=== PATIENT | female | born 1950 | race Caucasian/White ===

== ENCOUNTER → 2016-09-29 | Outpatient (CLI) | payer OTHER ==
[~2016-09-29] MED LIST: AMIT25TA9 PO; ASPCH81X PO; CALC-393 PO; CARI350T28 PO; CETI10TA84 PO; CHOL1000 PO; CITA20TA4 PO; CLON0.5T3 PO; FLUT0.15 NAE; LEVO75TA5 PO; MULT-845 PO; TRAM-10 PO; ZOLP5TAB PO
== END | disposition home or self-care (01) ==
LOC: C.LABMFLN 11:33
PROVIDERS: ATTEND Family Medicine
DX: E78.5 Hyperlipidemia, unspecified (principal)

== ENCOUNTER → 2017-06-13 | Outpatient (CLI) | payer OTHER ==
[2017-06-13 17:54] LABS: BLOOD UREA NITROGEN 12 mg/dl (7-18); BUN/CREATININE RATIO 20.4 (10-20); CALCIUM 9.8 mg/dl (8.5-10.1); CARBON DIOXIDE 26 mmol/L (21-32); CHLORIDE 105 mmol/L (98-107); CREATININE 0.56 mg/dl (0.60-1.20); GLUCOSE 94 mg/dl (70-99); SODIUM 137 mmol/L (136-145)
[2017-06-13 18:04] LABS: PHOSPHORUS 3.5 mg/dl (2.5-4.9)
[2017-06-13 18:19] LABS: BASO % 0.9 %; BASO ABS # 0.03 K/uL (0-0.2); COMPLETE YES; HEMATOCRIT 43.4 % (37-47); LYMPH % 49.7 %; LYMPH ABS # 1.75 K/uL (1.2-3.4); MEAN CELL VOLUME 91.2 fL (80-100); MEAN CORPUSCULAR HEMOGLOBIN 30.7 pg (25-34); MEAN CORPUSCULAR HGB CONC 33.6 g/dl (32-36); MEAN PLATELET VOLUME 9.4 fL (7.4-10.4); MONO % 9.1 %; NEUT % 36.3 %; PLATELET COUNT 254 K/uL (130-400); RED BLOOD COUNT 4.76 M/uL (4.2-5.4); WHITE BLOOD COUNT 3.52 K/uL (4.8-10.8)
== END | disposition home or self-care (01) ==
LOC: C.LABMFLN 14:54
PROVIDERS: ATTEND Family Medicine
DX: F32.9 Major depressive disorder, single episode, unspecified (principal); E03.9 Hypothyroidism, unspecified

== ENCOUNTER → 2017-06-14 | Outpatient (CLI) | payer OTHER ==
[2017-06-14 12:46] LABS: URINE APPEARANCE CLEAR (CLEAR); URINE BILIRUBIN NEG (NEG); URINE COLOR YELLOW; URINE NITRITE NEG (NEG); URINE PH 7.5 (4.5-7.5); UROBILINOGEN NEG (NEG)
[2017-06-14 12:47] LABS: MANUAL MICROSCOPIC REQUIRED? NO; REVIEW REQ? YES
== END | disposition home or self-care (01) ==
LOC: C.LABMFLN 10:33
PROVIDERS: ATTEND Family Medicine
DX: R53.83 Other fatigue (principal)

== ENCOUNTER → 2017-07-11 | Outpatient (CLI) | payer OTHER | END | disposition home or self-care (01) | LOC: C.LABMFLN 13:41 | PROVIDERS: ATTEND Urology | DX: R31.29 Other microscopic hematuria (principal) ==

== ENCOUNTER → 2017-08-08 | Outpatient (CLI) | payer OTHER ==
[2017-08-08 17:35] LABS: BASO % 0.6 %; BASO ABS # 0.02 K/uL (0-0.2); EOS % 6.8 %; EOS ABS # 0.24 K/uL (0-0.5); HEMOGLOBIN 15.1 g/dL (12.0-16.0); LYMPH % 32.2 %; LYMPH ABS # 1.14 K/uL (1.2-3.4); MEAN CORPUSCULAR HEMOGLOBIN 31.2 pg (25-34); MEAN CORPUSCULAR HGB CONC 33.6 g/dl (32-36); MEAN PLATELET VOLUME 9.9 fL (7.4-10.4); MONO % 8.8 %; MONO ABS # 0.31 K/uL (0.11-0.59); NEUT % 51.6 %; NEUT ABS # 1.83 K/uL (1.4-6.5); PLATELET COUNT 224 K/uL (130-400); RED CELL DISTRIBUTION WIDTH CV 14.7 % (11.5-14.5); RED CELL DISTRIBUTION WIDTH SD 50.3 fL (36.4-46.3); WHITE BLOOD COUNT 3.54 K/uL (4.8-10.8)
[2017-08-08 17:53] LABS: ALBUMIN 3.4 gm/dl (3.4-5.0); ALT/SGPT 41 U/L (12-78); AST/SGOT 23 U/L (15-37); BLOOD UREA NITROGEN 15 mg/dl (7-18); CALCIUM 9.3 mg/dl (8.5-10.1); CARBON DIOXIDE 29 mmol/L (21-32); CREATININE 0.67 mg/dl (0.60-1.20); GLUCOSE 98 mg/dl (70-99); SODIUM 138 mmol/L (136-145)
[2017-08-08 18:05] LABS: ALKALINE PHOSPHATASE 121 U/L (45-117); TOTAL PROTEIN 7.3 gm/dl (6.4-8.2)
== END | disposition home or self-care (01) ==
LOC: C.LABMFLN 10:50
PROVIDERS: ATTEND Family Medicine
DX: R53.83 Other fatigue (principal)

== ENCOUNTER → 2017-09-17 | Outpatient (CLI) | payer OTHER | END | disposition home or self-care (01) | LOC: C.LABMFLN 10:53 | PROVIDERS: ATTEND Family Medicine | DX: E78.5 Hyperlipidemia, unspecified (principal) ==

== ENCOUNTER → 2017-10-10 | Outpatient (CLI) | payer OTHER | END | disposition home or self-care (01) | LOC: C.LABMFLN 17:54 | PROVIDERS: ATTEND Urology | DX: R31.29 Other microscopic hematuria (principal) ==

== ENCOUNTER 2020-01-30 07:13 | Observation (INO) ==
--- NOTE | 2020-01-22 12:32 | Anesthesiology Consultation ---
Date of Service January 22, 2020 Assessment & Plan (1) Encounter for pre-operative examination: - Neutropenia (chronic): evaluated by heme/onc. Possibly cyclic or autoimmune and in addition possible splenomegaly. Per heme/onc note: 11/27/19: "do not think any further intervention is warranted. She may proceed with her foot surgery and normal monitoring of her CBC and see her as clinically indicated if indicated." - Hx lidocaine reaction: per patient, "heart stopped" during appendectomy and required defibrillator. She states she was told reaction was from lidocaine. No issues with surgery/anesthesia since. Surgeon office made aware. *Per nursing phone assessment on 01/21: Travel screen- Lives in [facility]. No known COVID-19 positive contacts. No current COVID-19 related symptoms. Patient scheduled for preop protocol COVID-19 testing 01/25 (location [facility]). Awaiting results. Chart Review Chart Review: Acceptable Risk for Surgery and Patient NOT seen in Pre Admission Testing History Surgery Operation Date: 01/30/20 08:35 Proposed Procedures p Left Foot Flexor Digitorum Longus Tendon, Flexor Hallux Longus Tendon, - DO brittani Kelly Achilles Lengthening, Posterior Tibial Tendon Transfer, - DO brittani Kelly Debridement Plantar Ulcer, Possible Exostectomy 5th Metatarsal - Brian Bentley DO Height/Weight Height: 5 ft 6 in Weight: 102.058 kg Allergies Allergy/AdvReac Type Severity Reaction Status Date / Time lidocaine Allergy Severe "heart Verified 01/22/20 11:34 stopped" requiring defibrillator during appendectomy Penicillins Allergy Severe HIVES, GUM Verified 01/22/20 11:34 SWELLING Sulfa (Sulfonamide Allergy Severe LIP Verified 01/22/20 11:34 Antibiotics) SWELLING AND HIVES ciprofloxacin [From Cipro] Allergy Intermediate DIFFUSE Verified 01/22/20 11:34 REDNESS/SWELLING codeine Allergy Mild Rash Verified 01/22/20 11:34 morphine Allergy Mild Rash Verified 01/22/20 11:34 baclofen AdvReac Intermediate "MADE ME Verified 01/22/20 11:34 FEEL CRAZY" Cipro TABS Allergy Intermediate DIFFUSE Uncoded 01/22/20 11:34 REDNESS/SWELLING Medications Home Medications Medication Instructions Recorded Confirmed Last Taken acetaminophen 325 mg tablet 650 mg PO Q6H PRN #360 tab 11/26/18 01/22/20 Unknown cetirizine 10 mg tablet 10 mg PO QAM #90 tab 11/26/18 01/22/20 Unknown cholecalciferol (vitamin D3) 25 1,000 units PO QAM #30 tab 11/26/18 01/22/20 Unknown mcg (1,000 unit) tablet multivit with 1 tab PO DAILY 11/26/18 01/22/20 Unknown ocroxnka-xpbc-ER-lutein 8 mg iron-400 mcg-300 mcg tablet melatonin 5 mg capsule 5 - 10 mg PO HS PRN cap 01/27/19 01/22/20 Unknown fluticasone propionate 50 2 sprays INTRANASAL DAILY #48 gm 03/17/19 01/22/20 Unknown mcg/actuation nasal spray,suspension Right wrist splint #1 ea 05/29/19 01/21/20 Unknown calcium carbonate 600 mg calcium 600 mg PO QAM tab 05/29/19 01/22/20 Unknown (1,500 mg) tablet amitriptyline 25 mg tablet 25 mg PO HS #90 tab 07/17/19 01/22/20 Unknown clonazepam 0.5 mg tablet 0.5 mg PO HS #30 tab 10/02/19 01/22/20 Unknown aspirin 81 mg PO BID 10/30/19 01/22/20 Unknown fluoxetine 20 mg PO QAM 10/30/19 01/22/20 Unknown levothyroxine 75 mcg PO QAM 10/30/19 01/22/20 Unknown carisoprodol 350 mg tablet 350 mg PO HS PRN #30 tab 01/01/20 01/22/20 Unknown tramadol 50 mg PO BID PRN 01/22/20 01/22/20 Unknown Past Medical History Medical History (Updated 01/22/20 @ 12:29 by Earnestine Muñoz) Carotid artery occlusion Chronic ischemic right MCA stroke 22 years ago- left sided weakness, no use of left hand Depressive disorder Dyslipidemia, goal LDL below 100 Fibromyalgia Gait abnormality wears brace on left foot/uses walker Hearing loss Hx of migraines Hypothyroidism Neutropenia evaluated by heme/onc, s/p bone marrow biopsy 11/2019 Persistent insomnia Past Family History Family History Brother Choriocarcinoma Cerebral palsy Myocardial infarction Father Heart disease Mother Heart disease Parkinson disease Sister Mesothelioma Past Surgical History Surgical History H/O laparoscopy H/O myomectomy Hemangioma REMOVED FROM LEFT LEG (4X'S) History of appendectomy History of colonoscopy History of endoscopic sinus surgery History of tonsillectomy and adenoidectomy [place] teeth removed Social History Smoking Status: Never smoker Do You Dip or Chew Tobacco: No Hx Alcohol Use: Yes Alcohol type: wine alcohol intake frequency: holidays/special occasions only Hx Substance Use: No substance use type: does not use Testing Laboratory Results 01/21/20 WBC 2.72 (under surveillance by heme/onc) H/H 14.4/44.4 PLATELETS 244 SODIUM 139 POTASSIUM 4.0 CHLORIDE 109 CO2 25 BUN 17 CREATININE 0.66 GLUCOSE 90 PT 10.3 PTT 26.8 INR 1.0 TSH 2.970 Electrocardiogram Date: 07/18/19 NSR at 92bpm. Possible LAE. Chest X-Ray Date: 07/18/19 No pneumothorax or pleural effusion. Suspected atelectic changes.
--- NOTE | 2020-01-28 09:36 | History & Physical Report ---
Date of Service January 28, 2020 Assessment & Plan (1) Contracture of joint: Schedule a Left foot FDL, FHL, Achilles lengthening, Posterior tibial tendon transfer, debridement plantar ulcer, possible exostectomy 5th metatarsal. All potential risks, benefits, complications, alternatives, and rehab have been discussed with the patient and she wishes to proceed. Schedule for 01.30.2020 with plan for ASA 81 mg BID x 4 wks for DVT prophylaxis. (2) Spasticity: (3) History of stroke: History of Present Illness Chief Complaint: left foot deformity and pain Primary Care Provider: Davide Kumar MD This is a patient who suffered a stroke in 1996 and over the past 23 years has had a progressive, worsening contracture of the LLE. She has been treated with bracing to correct the alignment of the foot. However, more recently, the deformity has worsened and she has difficulty with ambulation. She has had a recent fracture of the 5th metatarsal. She is now being set up for surgical management to correct the alignment of the foot. Allergies Allergy/AdvReac Type Severity Reaction Status Date / Time lidocaine Allergy Severe "heart Verified 01/22/20 11:34 stopped" requiring defibrillator during appendectomy Penicillins Allergy Severe HIVES, GUM Verified 01/22/20 11:34 SWELLING Sulfa (Sulfonamide Allergy Severe LIP Verified 01/22/20 11:34 Antibiotics) SWELLING AND HIVES ciprofloxacin [From Cipro] Allergy Intermediate DIFFUSE Verified 01/22/20 11:34 REDNESS/SWELLING codeine Allergy Mild Rash Verified 01/22/20 11:34 morphine Allergy Mild Rash Verified 01/22/20 11:34 baclofen AdvReac Intermediate "MADE ME Verified 01/22/20 11:34 FEEL CRAZY" Cipro TABS Allergy Intermediate DIFFUSE Uncoded 01/22/20 11:34 REDNESS/SWELLING Home Medications Home Medications Medication Instructions Recorded Confirmed Type acetaminophen 325 mg tablet 650 mg PO Q6H PRN #360 tab 11/26/18 01/22/20 History cetirizine 10 mg tablet 10 mg PO QAM #90 tab 11/26/18 01/22/20 History multivit with 1 tab PO DAILY 11/26/18 01/22/20 History abocwpdq-dqau-SN-lutein 8 mg iron-400 mcg-300 mcg tablet melatonin 5 mg capsule 5 - 10 mg PO HS PRN cap 01/27/19 01/22/20 History fluticasone propionate 50 2 sprays INTRANASAL DAILY #48 gm 03/17/19 01/22/20 Rx mcg/actuation nasal spray,suspension Right wrist splint #1 ea 05/29/19 01/21/20 Rx calcium carbonate 600 mg calcium 600 mg PO QAM tab 05/29/19 01/22/20 History (1,500 mg) tablet amitriptyline 25 mg tablet 25 mg PO HS #90 tab 07/17/19 01/22/20 Rx clonazepam 0.5 mg tablet 0.5 mg PO HS #30 tab 10/02/19 01/22/20 Rx aspirin 81 mg PO BID 10/30/19 01/22/20 History fluoxetine 20 mg PO QAM 10/30/19 01/22/20 History levothyroxine 75 mcg PO QAM 10/30/19 01/22/20 History carisoprodol 350 mg tablet 350 mg PO HS PRN #30 tab 01/01/20 01/22/20 Rx tramadol 50 mg PO BID PRN 01/22/20 01/22/20 History cholecalciferol (vitamin D3) 25 2,000 units PO QAM #30 tab 01/27/20 History mcg (1,000 unit) tablet Past Med/Surg History Medical History (Updated 01/28/20 @ 09:33 by Félix Perez PA-C) Carotid artery occlusion Chronic ischemic right MCA stroke 22 years ago- left sided weakness, no use of left hand Depressive disorder Dyslipidemia, goal LDL below 100 Fibromyalgia Gait abnormality wears brace on left foot/uses walker Hearing loss Hx of migraines Hypothyroidism Neutropenia evaluated by heme/onc, s/p bone marrow biopsy 11/2019 Persistent insomnia Surgical History H/O laparoscopy H/O myomectomy Hemangioma REMOVED FROM LEFT LEG (4X'S) History of appendectomy History of colonoscopy History of endoscopic sinus surgery History of tonsillectomy and adenoidectomy [place] teeth removed Family History Brother Choriocarcinoma Cerebral palsy Myocardial infarction Father Heart disease Mother Heart disease Parkinson disease Sister Mesothelioma Social History Smoking Status: Never smoker Second Hand Exposure: Yes ( A CHILD); Do You Dip or Chew Tobacco: No; Tobacco Cessation Education Requested by Patient: No Hx Alcohol Use: Yes Alcohol type: wine Hx Substance Use: No Preferred Language: [place] Islander Construction Operations Manager Required: No Beliefs That Will Affect Care: None Current Living Situation: Alone Feels Safe at Home: Yes Safety Concerns: Feels Safe At This Time Physical Exam Constitutional: well developed and well nourished; no acute distress ENMT: external ear and nose normal, oropharynx normal Neck: trachea midline, no thyromegaly Respiratory: normal respiratory effort, lungs clear to auscultation Cardiovascular: Rate/Rhythm: regular rate and regular rhythm Gastrointestinal (Abdomen): normal bowel sounds, soft, nontender, no hepatosplenomegaly Musculoskeletal: Ankle: + deformity (left ankle with plantarflexion/inversion contracture); no skin erythema, no ecchymosis and no surgical incision Skin: no rashes, warm and dry Psychiatric: A+Ox3, euthymic affect Speech: normal rate/rhythm/volume of speech Lymphatic: no cervical or axillary lymphadenopathy
[~2020-01-30 07:13] MED LIST changes: -AMIT25TA9 PO; -ASPCH81X PO; +BACITRACIN INJ 50,000 UNIT VIAL ONE; -CALC-393 PO; -CARI350T28 PO; -CETI10TA84 PO; -CHOL1000 PO; -CITA20TA4 PO; +CLINDAMYCIN 600 MG/54 ML BAG IV SCH; -CLON0.5T3 PO; +EPINEPHrine INJ 1 MG/ML AMP ONE; -FLUT0.15 NAE; +LACTATED RINGER'S 1,000 ML IV SCH; -LEVO75TA5 PO; -MULT-845 PO; +ROPIVACAINE 0.5% 5 MG/ML 30 ML VIAL ONE; -TRAM-10 PO; -ZOLP5TAB PO
[2020-01-30] MEDS ORDERED: MIDAZOLAM HCL 1 MG/ML 2ML VIAL ONE (07:16)
[2020-01-30] MEDS ORDERED: PROPOFOL IV EMULSION 10 MG/ML 20 ML VIAL IV ONE (07:16)
[2020-01-30] MEDS ORDERED: fentaNYL citrate 100 MCG/2 ML VIAL ONE ×2 (07:16→09:59)
[2020-01-30] MEDS ORDERED: HYDROmorphone INJ 2 MG/ML SYR/VIAL ONE (07:21)
[2020-01-30] MEDS ORDERED: CHLOROPROCAINE HCL 3% 20 ML VIAL ONE ×2 (07:38→07:43)
--- NOTE | 2020-01-30 07:44 | History & Physical Bridge Note ---
Date of Service January 30, 2020 History & Physical Bridge Note I have examined the patient, reviewed the History & Physical and in the interval since the performance of the History & Physical I have noted the following changes of clinical significance: no changes noted
[2020-01-30] MEDS ORDERED: fentaNYL citrate 100 MCG/2 ML VIAL IV PRN (08:02)
[2020-01-30] MEDS ORDERED: LABETALOL HCL IV 5 MG/ML 20ML IV PRN (08:02)
[2020-01-30] MEDS ORDERED: ATROPINE SULFATE 0.1 MG/ML 10ML SYR IV PRN (08:02)
[2020-01-30] MEDS ORDERED: ePHEDrine sulfate 50 MG/ML AMP IV PRN (08:02)
[2020-01-30] MEDS ORDERED: MEPERIDINE HCL 25 MG/ML CARP/VIAL IV PRN (08:02)
[2020-01-30] MEDS ORDERED: PHENYLEPHRINE 100MCG/ML 5ML SYR IV PRN (08:02)
[2020-01-30] MEDS ORDERED: ONDANSETRON INJ 2 MG/ML 2 ML VIAL IV PRN ×2 (08:02→13:36)
[2020-01-30] MEDS ORDERED: ACETAMINOPHEN 1000 MG/100 ML IV IV ONE (08:08)
[2020-01-30] MEDS ORDERED: DEXAMETHASONE SOD INJ 4 MG/ML VIAL ONE (09:49)
[2020-01-30] MEDS ORDERED: ONDANSETRON INJ 2 MG/ML 2 ML VIAL ONE (09:49)
[2020-01-30] MEDS ORDERED: GLYCOPYRROLATE 0.2 MG/ML VIAL ONE (10:14)
[2020-01-30] MEDS ORDERED: PHENYLEPHRINE HCL 10 MG/ML VIAL ONE (11:09)
[2020-01-30] MEDS ORDERED: PHENYLEPHRINE 100MCG/ML 5ML SYR ONE (11:09)
[2020-01-30] MEDS ORDERED: ePHEDrine sulfate 50 MG/ML SYR ONE (11:09)
--- NOTE | 2020-01-30 11:09 | Post Operative Brief Note ---
Immediate Post Op Note v1 Date of Surgery January 30, 2020 Pre & Post Diagnosis Operation Date: 01/30/20 08:25 Pre-Op Diagnosis: Left foot fixed equinus contracture, left ankle equinus contracture, contracture Achilles tendon, contracture flexor hallucis longus, contracture flexor digitorum longus, contracture plantar fascia, plantar calcaneal exostosis, post stroke syndrome left lower extremity, exostosis base of fifth metatarsal, ulceration plantar lateral foot, unspecified Joint contracture Post-Op Diagnosis: Left foot fixed equinus contracture, left ankle equinus contracture, contracture Achilles tendon, contracture flexor hallucis longus, contracture flexor digitorum longus, contracture plantar fascia, plantar calcaneal exostosis, post stroke syndrome left lower extremity, exostosis base of fifth metatarsal, ulceration plantar lateral foot,unspecified Joint contracture I identified the patient and participated in the time-out.: Yes Procedure Operation Date: 01/30/20 08:25 Actual Procedures p Left Foot Flexor Digitorum Longus Tendon lengthening, Flexor Hallux Longus Tendon lengthening, Left Plantar Fasciitis Release, Left Resection plantar calcaneal Bone exostosis (Left) - DO brittani Kelly Achilles tendon lengthening, Posterior Tibial Tendon Transfer to third cuneiform bone,(Left) - DO brittani Kelly Debridement Plantar Ulcer plantar lateral foot, fifth metatarsal Exostectomy, Arthrotomy Ankle Joint with posterior capsulotomy and tissue release(Left) - Brian Bentley DO Surgeon Brian Bentley DO Web Application Dev Specialist Félix Perez PA-C Estimated Blood Loss 2 Findings Consistent with Post-Op Diagnosis Specimens None Anesthesia Type General Complications none Disposition Accompanied Patient To Recovery: No Disposition: Recovery Room Overlapping Procedure I was present for: the critical portions of procedure. I was immediately available: during the entire case.
--- NOTE | 2020-01-30 11:23 | Fluoroscopy Report ---
FL foot LT 2V CLINICAL HISTORY: LEFT FOOTAchilles lengthening procedure. COMPARISON STUDY: FLUOROSCOPY TIME: 34 seconds. NUMBER OF FLUOROSCOPIC IMAGES: 2 FINDINGS: 2 intraoperative fluoroscopic spot images demonstrate a soft tissue anchor projected over t he midfoot at the level of either the medial or lateral cuneiform. There is gas within the soft tissu es consistent with recent surgery. IMPRESSION: Intraoperative fluoroscopic spot image demonstrating a soft tissue anchor within the mid foot. ACT 112: Negative or not required by law. Electronically signed by: Vin Garcia M.D. 01/30/2020 11:21 AM
[2020-01-30] MEDS ORDERED: PROMETHAZINE HCL 12.5 MG in SODIUM CHLORIDE 0.9% 50 ML IV ONE (12:45)
--- NOTE | 2020-01-30 13:15 | Anesthesiology Progress Note ---
Date of Service January 30, 2020 Anesthesia Post Procedure Vital Signs Vital Signs: Temp Pulse Pulse Resp BP Pulse Ox 01/30/20 13:10 36.0 C L 90 16 129/79 96 01/30/20 13:00 87 14 123/88 94 01/30/20 12:50 91 H 12 144/89 H 95 01/30/20 12:40 92 H 12 127/104 H 94 01/30/20 12:30 94 H 16 142/117 H 94 01/30/20 12:20 36 C L 97 H 14 142/117 H 94 01/30/20 07:44 36.8 C 73 20 114/83 94 Transfer of Care Handoff Completed per policy Notes Mental Status: alert / awake / arousable Patient Amnestic to Procedure: Yes Nausea / Vomiting: adequately controlled Pain: adequately controlled Airway Patency, RR, SpO2: stable & adequate BP & HR: stable & adequate Hydration State: stable & adequate Anesthetic Complications: no major complications apparent and Pt Satisfied with anesthetic care Notes: The patient is awake and stable. She was given a dose of Phenergan in PACU for nausea.
[2020-01-30] MEDS ORDERED: METOCLOPRAMIDE HCL INJ 5 MG/ML 2 ML VIAL IV PRN (13:36)
[2020-01-30] MEDS ORDERED: [UNRECOGNIZED DRUG - OTHER] PO PRN ×2 (13:36→14:20)
[2020-01-30] MEDS ORDERED: NO NSAIDS SCH (13:36)
[2020-01-30] MEDS ORDERED: CARISOPRODOL 350 MG TABLET PO PRN (13:36)
[2020-01-30] MEDS ORDERED: SODIUM CHLORIDE 0.9% 1000ML 1,000 ML IV SCH (13:36)
[2020-01-30] MEDS ORDERED: MAGNESIUM HYDROXIDE SUSP 30 ML UDC PO PRN (13:36)
[2020-01-30] MEDS ORDERED: bisacodyL 10 MG SUPP PR PRN (13:36)
[2020-01-30] MEDS ORDERED: HYDROmorphone INJ 0.5 MG/0.5 ML SYR IV PRN (13:36)
[2020-01-30] MEDS ORDERED: NALOXONE HCL 0.4 MG/1 ML VIAL/CARP IV PRN (13:36)
--- NOTE | 2020-01-30 13:56 | History & Physical Report ---
Date of Service January 30, 2020 Assessment & Plan (1) Contracture of joint: Secondary to prior CVA Status post left foot flexor digitorum longus tendon lengthening, flexor hallux longus tendon lengthening, left plantar fasciitis release, left resection plantar calcaneal bone exotosis performed 01/29/[address] Bentley PT/OT, pain management, VTE prophylaxis as per ortho management Chronic medical issues at baseline, continue usual outpatient medications, see details below. (2) History of stroke: Continue ASA, prior intolerance (questionable myositis) to statin with pt declining further retrials. 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 Recommending retesting with routine appointment with PCP approx 8 weeks after discharge (6) Chronic sinusitis: Continue cetirizine 10 mg p.o. every morning Flonase 2 sprays intranasal daily (7) Hypothyroidism: TSH WNL on pre-op labs Continue levothyroxine 75 mcg p.o. every morning (8) Persistent insomnia: Continue clonazepam 0.5 mg p.o. at bedtime, noted prior attempts of weaning have failed. (9) Dyslipidemia, goal LDL below 100: Statin intolerance. Consider PCSK 9 inhibitor if insurance covers this as outpatient. LDL 150 on preop labs (10) Depressive disorder: Continue fluoxetine 20 mg p.o. every morning (11) Fibromyalgia: Consider switching fluoxetine to venlafaxine as outpatient. Continue amitriptyline 25 mg p.o. at bedtime (12) Gait abnormality: PT as above Admission and Anticipated Discharge Date Admission Date: January 30, 2020 History of Present Illness Primary Care Provider: Davide Kumar MD Iva Langford is a 69-year-old female here for elective left foot surgery due to chronic but worsening contractures performed by Dr. Bentley today. Doing well postoperatively but still groggy from anesthetic medications. No medical concerns or questions at this time. History of left hemiparesis due to right MCA stroke with associated chronic pain, ambulatory dysfunction, neutropenia (recent work-up including bone marrow biopsy by hematology suggestive of cyclic versus autoimmune versus splenomegaly, allergic rhinitis, chronic sinusitis, insomnia, dysfunction of left eustachian tube, hypothyroidism. Allergies Allergy/AdvReac Type Severity Reaction Status Date / Time lidocaine Allergy Severe "heart Verified 01/30/20 07:50 stopped" requiring defibrillator during appendectomy Penicillins Allergy Severe HIVES, GUM Verified 01/30/20 07:50 SWELLING Sulfa (Sulfonamide Allergy Severe LIP Verified 01/30/20 07:50 Antibiotics) SWELLING AND HIVES ciprofloxacin [From Cipro] Allergy Intermediate DIFFUSE Verified 01/30/20 07:50 REDNESS/SWELLING codeine Allergy Mild Rash Verified 01/30/20 07:50 morphine Allergy Mild Rash Verified 01/30/20 07:50 baclofen AdvReac Intermediate "MADE ME Verified 01/30/20 07:50 FEEL CRAZY" Cipro TABS Allergy Intermediate DIFFUSE Uncoded 01/30/20 07:50 REDNESS/SWELLING Home Medications Home Medications Medication Instructions Recorded Confirmed Type acetaminophen 325 mg tablet 650 mg PO Q6H PRN #360 tab 11/26/18 01/30/20 History cetirizine 10 mg tablet 10 mg PO QAM #90 tab 11/26/18 01/30/20 History multivit with 1 tab PO DAILY 11/26/18 01/30/20 History tjjzuxew-qlng-LN-lutein 8 mg iron-400 mcg-300 mcg tablet melatonin 5 mg capsule 5 - 10 mg PO HS PRN cap 01/27/19 01/30/20 History fluticasone propionate 50 2 sprays INTRANASAL DAILY #48 gm 03/17/19 01/30/20 Rx mcg/actuation nasal spray,suspension Right wrist splint #1 ea 05/29/19 01/21/20 Rx calcium carbonate 600 mg calcium 600 mg PO QAM tab 05/29/19 01/30/20 History (1,500 mg) tablet amitriptyline 25 mg tablet 25 mg PO HS #90 tab 07/17/19 01/30/20 Rx clonazepam 0.5 mg tablet 0.5 mg PO HS #30 tab 10/02/19 01/30/20 Rx aspirin 81 mg PO BID 10/30/19 01/30/20 History fluoxetine 20 mg PO QAM 10/30/19 01/30/20 History levothyroxine 75 mcg PO QAM 10/30/19 01/30/20 History carisoprodol 350 mg tablet 350 mg PO HS PRN #30 tab 01/01/20 01/30/20 Rx tramadol 50 mg PO BID PRN 01/22/20 01/30/20 History cholecalciferol (vitamin D3) 25 2,000 units PO QAM #30 tab 01/27/20 01/30/20 History mcg (1,000 unit) tablet Past Med/Surg History Medical History Carotid artery occlusion Chronic ischemic right MCA stroke 22 years ago- left sided weakness, no use of left hand Depressive disorder Dyslipidemia, goal LDL below 100 Fibromyalgia Gait abnormality wears brace on left foot/uses walker Hearing loss Hx of migraines Hypothyroidism Neutropenia evaluated by heme/onc, s/p bone marrow biopsy 11/2019 Persistent insomnia Surgical History H/O laparoscopy H/O myomectomy Hemangioma REMOVED FROM LEFT LEG (4X'S) History of appendectomy History of colonoscopy History of endoscopic sinus surgery History of tonsillectomy and adenoidectomy [place] teeth removed Family History Brother Choriocarcinoma Cerebral palsy Myocardial infarction Father Heart disease Mother Heart disease Parkinson disease Sister Mesothelioma Social History Smoking Status: Never smoker Second Hand Exposure: Yes ( A CHILD); Do You Dip or Chew Tobacco: No; Tobacco Cessation Education Requested by Patient: No Hx Alcohol Use: Yes Alcohol type: wine Hx Substance Use: No Preferred Language: Occitan Communication Ability: Effective State Wildlife Officer Required: No Beliefs That Will Affect Care: None Current Living Situation: Alone Feels Safe at Home: Yes Safety Concerns: Feels Safe At This Time Review of Systems Review of Systems: All systems reviewed & are unremarkable except as noted in HPI & below Physical Exam Constitutional: no acute distress Eyes: + anicteric sclerae; normal pupil size ENMT: external ear and nose normal, oropharynx normal Neck: trachea midline, no thyromegaly Respiratory: normal respiratory effort, lungs clear to auscultation (anteriorly) Cardiovascular: RRR, no murmur, no edema Gastrointestinal (Abdomen): normal bowel sounds, soft, nontender, no hepatosplenomegaly Musculoskeletal: Chronic contractures of left upper extremity, Surgical dressing in place on lower extremity not removed Neurologic: awake; not confused Psychiatric: A+Ox3, euthymic affect Results & Data Results & Data ([facility]) Vital Signs (Past 12 Hours) Vital Signs Temp Pulse Pulse Resp BP Pulse Ox 01/30/20 13:10 36.0 C L 94 H 14 129/85 95 01/30/20 13:00 87 14 123/88 94 01/30/20 12:50 91 H 12 144/89 H 95 01/30/20 12:40 92 H 12 127/104 H 94 01/30/20 12:30 94 H 16 142/117 H 94 01/30/20 12:20 36 C L 97 H 14 142/117 H 94 01/30/20 07:44 36.8 C 73 20 114/83 94 Code Status & VTE Plan VTE Prophylaxis Plan VTE Prophylaxis will be ordered: Yes PG Care Time/CCT Total # of Minutes Spent Total Time Spent with Patient: Total time spent is greater than 50% in coordination of care (as documented) at patient's floor/unit and/or counseling patient: Coding Diagnoses Contracture of joint M24.50 History of stroke Z86.73 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
--- NOTE | 2020-01-30 14:27 | Operative Report (OR) ---
DATE OF OPERATION: 01/30/2020 PREOPERATIVE DIAGNOSES: 1. Left foot fixed equinus contracture. 2. Left ankle fixed equinus contracture. 3. Contracture of the Achilles tendon. 4. Contracture of the flexor hallucis longus tendon. 5. Contracture of the flexor digitorum longus tendon. 6. Contracture of the plantar fascia. 7. Post stroke syndrome, left lower extremity. 8. Exostosis at the base of the fifth metatarsal. 9. Ulceration of the plantar lateral foot. 10. Unspecified joint contracture. POSTOPERATIVE DIAGNOSES: 1. Left foot fixed equinus contracture. 2. Left ankle fixed equinus contracture. 3. Contracture of the Achilles tendon. 4. Contracture of the flexor hallucis longus tendon. 5. Contracture of the flexor digitorum longus tendon. 6. Contracture of the plantar fascia. 7. Post stroke syndrome, left lower extremity. 8. Exostosis at the base of the fifth metatarsal. 9. Ulceration of the plantar lateral foot. 10. Unspecified joint contracture. 11. Plantar calcaneal exostosis. PROCEDURES: 1. Left foot posterior tibial tendon transfer to the third cuneiform bone with Bio-Tenodesis screw and Endobutton. 2. Left foot flexor digitorum longus tendon lengthening. 3. Flexor hallucis longus tendon lengthening. 4. Left plantar fascial release. 5. Left Achilles tendon lengthening. 6. Resection plantar calcaneal bone exostosis. 7. Fifth metatarsal exostectomy. 8. Arthrotomy ankle joint with posterior capsulotomy and tissue release. 9. Debridement of plantar lateral ulcer of the foot. SURGEON: Brian Bentley DO. CONCESSIONS MANAGER: Félix Perez PA-C, who was present for patient positioning, sterile prep and drape, management of retractors and instruments. He was present through the critical portions of the case including wound closure, application of sterile dressing and transport of the patient to recovery. ANESTHESIA: General. SPECIMENS: None. DRAINS: None. COMPLICATIONS: None. BLOOD LOSS: 2 mL. PERTINENT HISTORY: This is a 69-year-old female who has had a severe hemiparetic stroke involving her left lower extremity. She had multiple contractures of the left lower extremity. She has been unable to ambulate due to the fixed equinus position of her foot and ankle. She attempted and failed all manner of conservative measures for the last several years, which have failed including use of MAFO brace, modification of activities, use of a wheelchair, observation, physical therapy and physician directed home exercises. The patient has been unable to ambulate for significant period of time due to fixed position of the foot and severe ulceration and exostosis at the base of the fifth metatarsal. Radiographs, MRI and other advanced imaging denotes findings as above and the patient is scheduled for surgery as indicated. All potential risks, benefits, complications, alternatives, rehab, potential for incomplete relief of symptoms, need for further surgery, DVT, PE, , persistent pain, swelling, scarring, weakness, neurovascular injury, wound complications, hardware failure, nonunion, malunion and bone fracture were discussed with the patient. The patient decided to proceed with the procedure as indicated. DESCRIPTION OF PROCEDURE: The patient was taken to the operative suite, placed supine on the operating table. After review of the consent and identification of proper operative site, the patient was anesthetized, LMA was placed. The patient was unable to have a peripheral nerve block due to hypersensitivity to fast sodium channel blockers. After anesthesia was induced, the patient had a tourniquet applied to the left lower extremity and the left lower extremity was then sterilely prepped and draped in usual fashion, elevated and exsanguinated with an Esmarch bandage, tourniquet inflated to 350 mmHg. Next, a 15 blade scalpel was used to make an incision on the medial plantar border of the left heel. The incision was deepened through subcutaneous tissue. Meticulous hemostasis was achieved with electrocautery. Aparna rakes were applied. The plantar fascia was identified. Plantar fascial release was performed with a 15-blade scalpel to release the fixed plantar contracture of the foot. Next, there was noted to be a calcaneal exostosis in the plantar foot. This was then resected using a rongeur and a rasp. This was irrigated and closed using buried interrupted 2-0 Vicryl and nylon sutures. Next, a 15-blade scalpel was used to make an incision along the medial border of the Achilles tendon. The incision was deepened through subcutaneous tissue. Meticulous hemostasis was achieved with electrocautery. Full thickness skin flaps developed. Electrocautery was used to achieve hemostasis and the peritenon was then incised in line with skin incision with 15-blade scalpel that is retracted with Aparna rakes. The tendon was identified and then a Z-lengthening was then performed with 11 blade scalpel. This was performed in the sagittal plane to enhance surface area of tendon. Palpable release was performed. The foot was held in approximately 5 degrees of dorsiflexion after the Achilles tendon was released and the tendon was then reapproximated using interrupted #2 FiberWire sutures and then a Krackow locking loop stitch was applied to further stabilize the repair. Next, a 15-blade scalpel was used to make an incision centered over the flexor digitorum longus tendon along the medial malleolus. The incision was deepened through subcutaneous tissue with a 15-blade scalpel. Meticulous hemostasis was achieved with electrocautery. Aparna rakes were applied. The laciniate ligament was then incised in line with skin incision and then the flexor retinaculum was then incised with 15-blade scalpel revealing the posterior tibial tendon, which was then traced distally to its insertion and the insertion was then released with a 15-blade scalpel. The tendon was then debrided down to 6 mm diameter and then whipstitched with #2 FiberLoop. This was passed through a 6 mm graft sizer and the tendon was then placed in moist lap. Next, attention was then directed toward the flexor digitorum longus tendon, which was then visualized and the sheath was then opened with a Metzenbaum scissor, exposing the tendon. A Z-lengthening was then performed of the flexor digitorum longus tendon releasing the contracture. The tendon was then lengthened. The foot was held in neutral dorsiflexion and the tendon was then reapproximated with interrupted #2 FiberWire sutures. Next, the neurovascular bundle was then carefully retracted posteriorly with [facility] retractors. The sheath for the flexor hallucis longus was then identified. This was then opened with a 15-blade scalpel and then released proximal and distal with Metzenbaum scissors. The tendon was then withdrawn from the tendon sheath and then lengthened with an 11-blade scalpel in a Z-lengthening fashion. Next, the tendon was then lengthened. The foot was held in neutral dorsiflexion with the great toe held in neutral and the tendon was then reapproximated with interrupted #2 FiberWire horizontal mattress sutures with the tendon in its lengthened state. Next, more supple motion was noted with neutral dorsiflexion, release of the contracture is noted. However, there is noted to be a posterior ankle joint contracture. Arthrotomy was made with a 15-blade scalpel in the posterior ankle joint capsule and then capsulotomy was then performed with Metzenbaum scissors from the medial malleolus to the lateral malleolus with Metzenbaum scissors releasing the joint capsule contracture. Next, achieving neutral dorsiflexion was quite easy with lower tissue tension, improved foot position and then the posterior tibial tendon was then shuttled in the subcutaneous tunnel using a Cyndie clamp to the more medial aspect of the proximal lower extremity through a small stab incision with 15-blade scalpel. Tendon was then shuttled proximally and then using another shuttled placed posterior to the more proximal midshaft tibia, the posterior tibial tendon was then shuttled to lateral stab incision with 15-blade scalpel. The tendon was then withdrawn through the tissue. The interosseous membrane was dilated and released with a Metzenbaum scissor. Next, the tendon was then shuttled distally along the lateral aspect of the lower extremity using a Cyndie clamp, small stab incision with 15-blade scalpel and a 2-0 Vicryl suture. Next, the 15-blade scalpel was then used to make an incision over the dorsal third cuneiform. This incision was deepened through subcutaneous tissue. Meticulous hemostasis was achieved with electrocautery. Full thickness skin flaps developed. The dissection was performed through the retinaculum with Metzenbaum scissors down to the extensor digitorum brevis, which was then retracted and protected exposing the third cuneiform. Under live fluoroscopic assistance, guidepin was placed in the third cuneiform in the center-center position and this was then pierced through the plantar aspect of the third cuneiform and then using gentle palpation, placed through a small stab incision in the plantar aspect of the foot. Next, a 6 mm reamer was then passed over the guide pin to a depth of 15 mm. The posterior tibial tendon was then marked at 5 mm increments with a marking pen and then shuttled into the third cuneiform under live fluoroscopic assistance and then buried to a depth of 15 mm with the foot held in neutral dorsiflexion. A 5.5 mm Bio-Tenodesis screw was then placed into the socket in the third cuneiform and an Endobutton was applied to the plantar aspect of the third cuneiform over the sutures. A suture management technician was then used to shuttle half hitch knots under the Endobutton to secure it against the plantar aspect of the third cuneiform. Excess suture was cut with a 15-blade scalpel. Final radiographs were obtained noting neutral dorsiflexion and position of the foot and it is markedly improved in resting position. Then all incisions were then copiously irrigated with sterile normal saline. The flexor retinaculum was then closed using 2-0 Vicryl, the dermis was closed using buried interrupted 3-0 Vicryl, skin was closed using nylon medially. All small stab incisions were closed using 4-0 nylon and the dorsal foot incision was irrigated and closed with 3-0 Vicryl and 4-0 nylon. The Achilles tendon sheath was closed using 3-0 Vicryl. The dermis was closed using buried interrupted 3-0 Vicryl, skin was closed using 4-0 nylon. Next, a 15-blade scalpel was then used to make an incision on the plantar base of the fifth metatarsal. The incision was deepened through subcutaneous tissue. Meticulous hemostasis was achieved with electrocautery. Aparna rakes were applied. The bursa present was then incised revealing the hypertrophic exostosis at the base of the fifth metatarsal, which was then resected using a rongeur and then smoothed with a rasp. This was irrigated with copious amounts of sterile normal saline. The tissue was closed using Vicryl deep and 4-0 nylon superficially. The plantar lateral ulcer was then debrided using a 15-blade scalpel, this measured approximately 2 cm in diameter. Next, after final radiographs have been obtained, a sterile compressive dressing and bulky Jez Reddy plaster splint was applied overwrapped with an Adarsh wrap with the foot held in neutral dorsiflexion. The tourniquet was released. The patient was awakened. Normal hyperemic response was noted at the toes. The patient was then taken to recovery in stable condition. I attest to the content of the Intraoperative Record and any orders documented therein. Any exception s are noted below.
[2020-01-30] MEDS: ACETAMINOPHEN 500 MG TAB PO SCH ×2 (15:24→23:22)
[2020-01-30] MEDS: OXYCODONE HCL IR 5 MG TAB (IMMEDIATE RELEASE) PO PRN (17:12)
[2020-01-30] MEDS: CLINDAMYCIN 600 MG in DEXTROSE 5% 50 ML IV SCH (17:13)
[2020-01-30] MEDS: clonazePAM 0.5 MG TAB PO SCH (20:36)
[2020-01-30] MEDS: ASPIRIN 81 MG ECTAB PO SCH (20:37)
[2020-01-30] MEDS: DOCUSATE SODIUM 100 MG CAP PO SCH (20:37)
[2020-01-30] MEDS: AMITRIPTYLINE HCL 25 MG TAB PO SCH (20:38)
[2020-01-30] MEDS: SENNA 8.6 MG TAB PO SCH (20:38)
[2020-01-30] MEDS: CARISOPRODOL 350 MG TABLET PO SCH (20:42)
[2020-01-31] MEDS: OXYCODONE HCL IR 5 MG TAB (IMMEDIATE RELEASE) PO PRN ×5 (00:40→21:58)
[2020-01-31] MEDS: CLINDAMYCIN 600 MG in DEXTROSE 5% 50 ML IV SCH (00:41)
[2020-01-31] MEDS: LEVOTHYROXINE SODIUM 75 MCG TABLET PO SCH (05:25)
[2020-01-31 05:46] LABS: Hematocrit (blood only) 42.1 % (37-47); Hemoglobin 13.9 g/dL (12.0-16.0); Mean Corpuscular Hemoglobin 30.3 pg (25-34); Mean Corpuscular Volume 91.7 fL (80-100); Mean Platelet Volume 9.4 fL (7.4-10.4); Platelet Count 217 K/uL (130-400); RDW Coefficient of Variation 14.6 % (11.5-14.5); RDW Standard Deviation 49.3 fL (36.4-46.3); Red Blood Count 4.59 M/uL (4.2-5.4); White Blood Count 6.38 K/uL (4.8-10.8)
[2020-01-31 06:07] LABS: BUN Creatinine Ratio 14.1 (10-20); Calcium 8.4 mg/dl (8.5-10.1); Creatinine Clr Calc Pharmacy 89.6 ml/min; Est GFR (Non-African American) 85.4; Potassium 4.2 mmol/L (3.5-5.1)
[2020-01-31] MEDS: ACETAMINOPHEN 500 MG TAB PO SCH ×3 (07:46→21:58)
[2020-01-31] MEDS: CHOLECALCIFEROL 1,000 UNITS 25 MCG TAB PO SCH (08:46)
[2020-01-31] MEDS: MULTIVITAMIN TAB PO SCH (08:46)
[2020-01-31] MEDS: CALCIUM CARBONATE 1250MG TAB PO SCH (08:46)
[2020-01-31] MEDS: ASPIRIN 81 MG ECTAB PO SCH ×2 (08:46→20:19)
[2020-01-31] MEDS: FLUTICASONE PROPIONATE NA SPR 16 GM BTL SCH (08:46)
[2020-01-31] MEDS: FLUOXETINE HCL 20 MG CAP PO SCH (08:46)
[2020-01-31] MEDS: DOCUSATE SODIUM 100 MG CAP PO SCH ×2 (08:46→20:19)
[2020-01-31] MEDS: CETIRIZINE HCL 10 MG TABLET PO SCH (08:46)
[2020-01-31] MEDS ORDERED: NON-FORMULARY MEDICATION (Multivit-Min-Iron-Fa-Lutein [Centrum Silver Women] 1 TAB) PO SCH (09:00)
[2020-01-31] MEDS ORDERED: [UNRECOGNIZED DRUG - SUPPLY] TOP SCH (09:00)
--- NOTE | 2020-01-31 09:28 | Hospitalist Consultation ---
Date of Consultation January 30, 2020 Assessment & Plan (1) Contracture of joint: Secondary to prior CVA Status post left foot flexor digitorum longus tendon lengthening, flexor hallux longus tendon lengthening, left plantar fasciitis release, left resection plantar calcaneal bone exotosis performed 01/29/[address] Bentley PT/OT, pain management, VTE prophylaxis as per ortho management Chronic medical issues at baseline, continue usual outpatient medications, see details below. (2) History of stroke: Continue ASA, prior intolerance (questionable myositis) to statin with pt declining further retrials. 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 (5) Hematuria, microscopic: 5-10 RBCs, normal in October. Patient reports prior cystoscopy normal. (6) Chronic sinusitis: Continue cetirizine 10 mg p.o. every morning Flonase 2 sprays intranasal daily (7) Hypothyroidism: TSH WNL on pre-op labs Continue levothyroxine 75 mcg p.o. every morning (8) Persistent insomnia: Continue clonazepam 0.5 mg p.o. at bedtime, noted prior attempts of weaning have failed. (9) Dyslipidemia, goal LDL below 100: Statin intolerance. Consider PCSK 9 inhibitor if insurance covers this as outpatient. LDL 150 on preop labs (10) Depressive disorder: Continue fluoxetine 20 mg p.o. every morning (11) Fibromyalgia: Consider switching fluoxetine to venlafaxine as outpatient. Continue amitriptyline 25 mg p.o. at bedtime (12) Gait abnormality: PT as above History of Present Illness Reason for Consultation: Medical Management Attending Physician: Brian Bentley DO History of Present Illness Iva Langford is a 69-year-old female here for elective left foot surgery due to chronic but worsening contractures performed by Dr. Bentley today. Doing well postoperatively but still groggy from anesthetic medications. No medical concerns or questions at this time. History of left hemiparesis due to right MCA stroke with associated chronic pain, ambulatory dysfunction, neutropenia (recent work-up including bone marrow biopsy by hematology suggestive of cyclic versus autoimmune versus splenomegaly, allergic rhinitis, chronic sinusitis, insomnia, dysfunction of left eustachian tube, hypothyroidism. Allergies Allergy/AdvReac Type Severity Reaction Status Date / Time lidocaine Allergy Severe "heart Verified 01/30/20 07:50 stopped" requiring defibrillator during appendectomy Penicillins Allergy Severe HIVES, GUM Verified 01/30/20 07:50 SWELLING Sulfa (Sulfonamide Allergy Severe LIP Verified 01/30/20 07:50 Antibiotics) SWELLING AND HIVES ciprofloxacin [From Cipro] Allergy Intermediate DIFFUSE Verified 01/30/20 07:50 REDNESS/SWELLING codeine Allergy Mild Rash Verified 01/30/20 07:50 morphine Allergy Mild Rash Verified 01/30/20 07:50 baclofen AdvReac Intermediate "MADE ME Verified 01/30/20 07:50 FEEL CRAZY" Cipro TABS Allergy Intermediate DIFFUSE Uncoded 01/30/20 07:50 REDNESS/SWELLING Home Medications Home Medications Medication Instructions Recorded Confirmed Type acetaminophen 325 mg tablet 650 mg PO Q6H PRN #360 tab 11/26/18 01/30/20 History cetirizine 10 mg tablet 10 mg PO QAM #90 tab 11/26/18 01/30/20 History multivit with 1 tab PO DAILY 11/26/18 01/30/20 History fjcxcnut-gsuz-HX-lutein 8 mg iron-400 mcg-300 mcg tablet melatonin 5 mg capsule 5 - 10 mg PO HS PRN cap 01/27/19 01/30/20 History fluticasone propionate 50 2 sprays INTRANASAL DAILY #48 gm 03/17/19 01/30/20 Rx mcg/actuation nasal spray,suspension Right wrist splint #1 ea 05/29/19 01/21/20 Rx calcium carbonate 600 mg calcium 600 mg PO QAM tab 05/29/19 01/30/20 History (1,500 mg) tablet amitriptyline 25 mg tablet 25 mg PO HS #90 tab 07/17/19 01/30/20 Rx clonazepam 0.5 mg tablet 0.5 mg PO HS #30 tab 10/02/19 01/30/20 Rx aspirin 81 mg PO BID 10/30/19 01/30/20 History fluoxetine 20 mg PO QAM 10/30/19 01/30/20 History levothyroxine 75 mcg PO QAM 10/30/19 01/30/20 History carisoprodol 350 mg tablet 350 mg PO HS PRN #30 tab 01/01/20 01/30/20 Rx tramadol 50 mg PO BID PRN 01/22/20 01/30/20 History cholecalciferol (vitamin D3) 25 2,000 units PO QAM #30 tab 01/27/20 01/30/20 History mcg (1,000 unit) tablet Patient History Medical History Carotid artery occlusion Chronic ischemic right MCA stroke 22 years ago- left sided weakness, no use of left hand Depressive disorder Dyslipidemia, goal LDL below 100 Fibromyalgia Gait abnormality wears brace on left foot/uses walker Hearing loss Hx of migraines Hypothyroidism Neutropenia evaluated by heme/onc, s/p bone marrow biopsy 11/2019 Persistent insomnia Surgical History H/O laparoscopy H/O myomectomy Hemangioma REMOVED FROM LEFT LEG (4X'S) History of appendectomy History of colonoscopy History of endoscopic sinus surgery History of tonsillectomy and adenoidectomy [place] teeth removed Family History Brother Choriocarcinoma Cerebral palsy Myocardial infarction Father Heart disease Mother Heart disease Parkinson disease Sister Mesothelioma Social History Smoking Status: Never smoker Second Hand Exposure: Yes ( A CHILD); Do You Dip or Chew Tobacco: No; Tobacco Cessation Education Requested by Patient: No Hx Alcohol Use: Yes Alcohol type: wine Hx Substance Use: No Preferred Language: Thai Communication Ability: Effective Pmp Certified Project Manager Required: No Beliefs That Will Affect Care: None Current Living Situation: Alone Feels Safe at Home: Yes Safety Concerns: Feels Safe At This Time Review of Systems Review of Systems: All systems reviewed & are unremarkable except as noted in HPI & below Physical Exam Constitutional: no acute distress Eyes: + anicteric sclerae; normal pupil size ENMT: external ear and nose normal, oropharynx normal Neck: trachea midline, no thyromegaly Respiratory: normal respiratory effort, lungs clear to auscultation (anteriorly) Cardiovascular: RRR, no murmur, no edema Gastrointestinal (Abdomen): normal bowel sounds, soft, nontender, no hepatosplenomegaly Neurologic: awake; not confused Psychiatric: A+Ox3, euthymic affect Results & Data Results & Data ([facility]) Vital Signs (Past 12 Hours) Vital Signs Temp Pulse Resp BP Pulse Ox 01/31/20 07:57 36.5 C 85 16 101/66 91 01/31/20 04:30 36.6 C 78 16 111/72 94 01/30/20 23:20 36.4 C L 89 18 128/79 93 PG Care Time/CCT Total # of Minutes Spent Total Time Spent with Patient: Total time spent is greater than 50% in coordination of care (as documented) at patient's floor/unit and/or counseling patient: Coding Level of Care Code 14596 Inpt Consult Level 3 Diagnoses Contracture of joint M24.50 History of stroke Z86.73 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
--- NOTE | 2020-01-31 09:42 | Orthopedic Progress Note ---
Date of Service January 31, 2020 Assessment & Plan (1) Contracture of joint: POD #1 S/P left foot tendon transfer and lengthening DVT prophylaxis: KATHY/SCD/ASA 81 BID NWB left LE Pt would like to go to [facility] for rehab Admission and Anticipated Discharge Date Admission Date: January 30, 2020 Subjective POD #1 Resting in bed. No complaints today. Some mild pain. Denies CP, SOB, N/V, dizziness Physical Exam Physical Exam: Splint in place left LE. NVI. toes mobile Results & Data ([facility]) Vital Signs (Past 12 Hours) Vital Signs Temp Pulse Resp BP Pulse Ox 01/31/20 07:57 36.5 C 85 16 101/66 91 01/31/20 04:30 36.6 C 78 16 111/72 94 01/30/20 23:20 36.4 C L 89 18 128/79 93
--- NOTE | 2020-01-31 10:36 | Hospitalist Progress Note ---
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 We have been consulted for medical management. 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 Bentley PT/OT, pain management, VTE prophylaxis as per ortho management Chronic medical issues at baseline, continue usual outpatient medications, see details below. (2) History of stroke: Continue ASA, prior intolerance (questionable myositis) to statin with pt declining further retrials. 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 (5) Hematuria, microscopic: 5-10 RBCs, normal in October. Patient reports prior cystoscopy normal. (6) Chronic sinusitis: Continue cetirizine 10 mg p.o. every morning Flonase 2 sprays intranasal daily (7) Hypothyroidism: TSH WNL on pre-op labs Continue levothyroxine 75 mcg p.o. every morning (8) Persistent insomnia: Continue clonazepam 0.5 mg p.o. at bedtime, noted prior attempts of weaning have failed. (9) Dyslipidemia, goal LDL below 100: Statin intolerance. Consider PCSK 9 inhibitor if insurance covers this as outpatient. LDL 150 on preop labs (10) Depressive disorder: Continue fluoxetine 20 mg p.o. every morning (11) Fibromyalgia: Consider switching fluoxetine to venlafaxine as outpatient. Continue amitriptyline 25 mg p.o. at bedtime (12) Gait abnormality: PT as above Iva is medically stable and hospital service will sign off. Please let us know if you would like us to see Iva again, and we would be more than happy to see her. 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 feeling ok overall. mostly notes taht she hopes surgery improved her pain enough to get off the soma. vitals noted nad heent nc at mmm breathing unlabored no accessory muscles good effort skin no rashes no pallor cerebrovascular disease/prior stroke - stable contractures - post op; discussed that getting off soma sometimes requires a weaning (so that she wouldn't be discouraged if she's not able to just stop it abruptly) otherwise as above medically appearing stable. will sign off. available if further assistance is needed. thanks Subjective Iva is awake and eating breakfast this morning without difficulty. She notes she is having some left foot pain s/p surgery. She was hoping for complete resolution of pain and expresses mild frustration this morning. She denies chest pain, shortness of breath, abdominal pain, fever, chills. No acute events reported overnight. Physical Exam Constitutional: WD/WN, vitals as above cooperative and comfortable; no acute distress and not ill appearing Eyes: PERRL, conjunctivae normal, anicteric sclerae ENMT: external ear and nose normal, oropharynx normal Neck: normal visual inspection and trachea midline Respiratory: normal respiratory effort, lungs clear to auscultation Cardiovascular: Rate/Rhythm: regular rate and regular rhythm Gastrointestinal (Abdomen): Percussion/Palpation: abdomen soft; abdomen nontender, no guarding and abdomen not rigid Musculoskeletal: Head/Neck/Chest: normocephalic and head atraumatic Left foot with heavy wrap; left arm prosthetic. Skin: no rashes, warm and dry Neurologic: Left sided hemiplegia - chronic Psychiatric: A+Ox3, euthymic affect Results & Data Results & Data ([facility]) Vital Signs (Past 12 Hours) Vital Signs Temp Pulse Resp BP Pulse Ox 01/31/20 07:57 36.5 C 85 16 101/66 91 01/31/20 04:30 36.6 C 78 16 111/72 94 01/30/20 23:20 36.4 C L 89 18 128/79 93 Laboratory Results Laboratory Results - last 24 hr 01/31/20 01/31/2001/30/20 05:33 05:33 05:33 WBC 6.38 RBC 4.59 Hgb 13.9 Hct 42.1 MCV 91.7 MCH 30.3 MCHC 33.0 RDW Std Deviation 49.3 H RDW Coeff of Lalo 14.6 H Plt Count 217 MPV 9.4 Sodium 139 Potassium 4.2 Chloride 107 Carbon Dioxide 26 Anion Gap 6.0 BUN 10 Creatinine 0.72 Est Cr Clr Drug Dosing 89.6 Est GFR ( Amer) 99.0 Est GFR (Non-Af Amer) 85.4 BUN/Creatinine Ratio 14.1 Glucose 114 H Calcium 8.4 L Hepatitis C Ab Screen Pos A Resident Activity Tracking Resident Involvement: Resident Care Provided Care Provided: Adult Hospital Medicine
--- NOTE | 2020-01-31 15:49 | Billing Data ---
Date of Service January 31, 2020 Coding Level of Care Code 77980 Subseq Hosp Care Lvl 2
[2020-01-31] MEDS ORDERED: COUGH DROP (SUGAR FREE) LOZ 24 LOZ/1 BOX BUCCAL ONE (16:08)
[2020-01-31] MEDS: AMITRIPTYLINE HCL 25 MG TAB PO SCH (20:19)
[2020-01-31] MEDS: CARISOPRODOL 350 MG TABLET PO SCH (20:19)
[2020-01-31] MEDS: SENNA 8.6 MG TAB PO SCH (20:20)
[2020-01-31] MEDS: clonazePAM 0.5 MG TAB PO SCH (20:25)
[2020-02-01] MEDS: LEVOTHYROXINE SODIUM 75 MCG TABLET PO SCH (04:36)
[2020-02-01] MEDS: OXYCODONE HCL IR 5 MG TAB (IMMEDIATE RELEASE) PO PRN ×3 (04:36→14:55)
[2020-02-01] MEDS: ACETAMINOPHEN 500 MG TAB PO SCH ×3 (07:15→23:26)
[2020-02-01] MEDS: FLUTICASONE PROPIONATE NA SPR 16 GM BTL SCH ×2 (08:45→20:52)
[2020-02-01] MEDS: FLUOXETINE HCL 20 MG CAP PO SCH (08:46)
[2020-02-01] MEDS: CETIRIZINE HCL 10 MG TABLET PO SCH (08:46)
[2020-02-01] MEDS: CHOLECALCIFEROL 1,000 UNITS 25 MCG TAB PO SCH (08:46)
[2020-02-01] MEDS: ASPIRIN 81 MG ECTAB PO SCH ×2 (08:46→20:52)
[2020-02-01] MEDS: MULTIVITAMIN TAB PO SCH (08:46)
[2020-02-01] MEDS: CALCIUM CARBONATE 1250MG TAB PO SCH (08:46)
[2020-02-01] MEDS: DOCUSATE SODIUM 100 MG CAP PO SCH (08:47)
--- NOTE | 2020-02-01 09:25 | Orthopedic Progress Note ---
Date of Service February 01, 2020 Assessment & Plan (1) Contracture of joint: POD # S/P Left Foot Flexor Digitorum Longus Tendon, Flexor Hallux Longus Tendon, Left Plantar Fasciitis Release, Left Resection Calcaneal Bone Spur DVT prophylaxis: KATHY/SCD/ASA 81 BID NWB left LE Discussed the NWB status again with the patient.She thinks she has a better understanding of it and will try harder so that she can safely get up and use bedside commode. She will continue to work with therapy. Pt would like to go to [facility] for rehab Admission and Anticipated Discharge Date Admission Date: January 30, 2020 Subjective Patient resting comfortably in bed. Concerns about being NWB and using bedpan. Otherwise, no complaints. Denies CP, SOB, N/V, Physical Exam Physical Exam: Splint in place left LE. NVI. toes mobile Results & Data ([facility]) Vital Signs (Past 12 Hours) Vital Signs Temp Pulse Resp BP Pulse Ox 02/01/20 07:16 36.8 C 89 16 116/72 94 02/01/20 00:43 37.4 C 101 H 14 100/64 92
[2020-02-01] MEDS ORDERED: LOPERAMIDE HCL 2 MG CAP PO STA (14:31)
[2020-02-01] MEDS ORDERED: OXYMETAZOLINE 0.05% 30 ML BTL ONE (17:39)
--- NOTE | 2020-02-01 17:46 | Hospitalist Progress Note ---
Date of Service February 01, 2020 Assessment & Plan (1) Diarrhea: suspect pt's inclination that it mostly relates to bowel meds is correct. discussed since it's a bit of an incontinence issue right now - that does suggest that she's probably got a reasonable amount of stool there (as does conc omitant urinary incontinence w cough, although postmenopausal women frequently have stress incontinence with a cough at baseline) - so discussed that really at this point we could increase bowel regimen to clear out stool, but since she's not uncomfortable with her baseline amount of stool/wasnt' feeling constipated, etc, that probably most reasonable to stop the medications - she agrees -stop colace and senna -anticipate resolution (2) Cough: upper airway congestion. increase flonase to bid, afrin x1 Admission and Anticipated Discharge Date Admission Date: January 30, 2020 Subjective asked to revisit due to diarrhea. "I think it's those stool softeners they have me on" -normally has about 1 medium size BM a day, but sometimes tends towards a little constipated (i have to take a stool softener at home from time to time) -tries to eat a lot of fiber, notes that preop she was trying to do a little more to protect against getting perioperative constipation -current diarrhea liquid, coming initially with some rectal urgency and cramps, now mostly when she coughs. has some urinary incontinence with cough as well -cough - thinks is mostly upper airway congestion. initially states that she's wheezing, then as she continues, thinks more that it's coming from her upper airway/nose. does use allergy medications Review of Systems Review of Systems: All systems reviewed & are unremarkable except as noted in HPI & below Physical Exam Physical Exam: gen aao pleasant nad heent nc at mmm lungs show faint diffusely heard expiratory wheeze, but fitting with pt's supposition - "wheeze" is better heard on auscultation of her neck than listening to chest. abd soft nd nt no masses no organomegaly. Results & Data Results & Data ([facility]) Vital Signs (Past 12 Hours) Vital Signs Temp Pulse Resp BP Pulse Ox 02/01/20 15:03 97.9 F 96 H 16 122/75 95 02/01/20 07:16 98.2 F 89 16 116/72 94 PG Care Time/CCT Total # of Minutes Spent Total Time Spent with Patient: Total time spent is greater than 50% in coordination of care (as documented) at patient's floor/unit and/or counseling patient: Coding Level of Care Code 14925 Subseq Hosp Care Lvl 2 Diagnoses Diarrhea R19.7 Cough R05
[2020-02-01] MEDS: clonazePAM 0.5 MG TAB PO SCH (20:52)
[2020-02-01] MEDS: CARISOPRODOL 350 MG TABLET PO SCH (20:52)
[2020-02-01] MEDS: AMITRIPTYLINE HCL 25 MG TAB PO SCH (20:52)
[2020-02-02] MEDS: LEVOTHYROXINE SODIUM 75 MCG TABLET PO SCH (04:45)
[2020-02-02] MEDS: OXYCODONE HCL IR 5 MG TAB (IMMEDIATE RELEASE) PO PRN ×2 (04:45→22:10)
--- NOTE | 2020-02-02 08:11 | Anesthesiology Progress Note ---
Date of Service February 02, 2020 Anesthesia Post Procedure Vital Signs Vital Signs: Temp Pulse Resp BP Pulse Ox 02/02/20 07:30 37.1 C 95 H 18 131/80 94 02/01/20 23:10 37.1 C 92 H 14 130/72 93 02/01/20 15:03 36.6 C 96 H 16 122/75 95 Pain Intensity Left Ankle: Pain Intensity: 6 Notes Mental Status: alert / awake / arousable and participated in evaluation Patient Amnestic to Procedure: Yes Nausea / Vomiting: adequately controlled Pain: adequately controlled Airway Patency, RR, SpO2: stable & adequate BP & HR: stable & adequate Hydration State: stable & adequate Anesthetic Complications: no major complications apparent and Pt Satisfied with anesthetic care
[2020-02-02] MEDS: FLUTICASONE PROPIONATE NA SPR 16 GM BTL SCH ×2 (08:36→21:17)
[2020-02-02] MEDS: ACETAMINOPHEN 500 MG TAB PO SCH ×2 (08:37→15:46)
[2020-02-02] MEDS: FLUOXETINE HCL 20 MG CAP PO SCH (08:37)
[2020-02-02] MEDS: CALCIUM CARBONATE 1250MG TAB PO SCH (08:37)
[2020-02-02] MEDS: MULTIVITAMIN TAB PO SCH (08:37)
[2020-02-02] MEDS: CHOLECALCIFEROL 1,000 UNITS 25 MCG TAB PO SCH (08:38)
[2020-02-02] MEDS: ASPIRIN 81 MG ECTAB PO SCH ×2 (08:38→21:18)
[2020-02-02] MEDS: CETIRIZINE HCL 10 MG TABLET PO SCH (08:38)
--- NOTE | 2020-02-02 08:57 | Hospitalist Progress Note ---
Date of Service February 02, 2020 Assessment & Plan (1) Contracture of joint: * POD #4 s/p left foot flexor digitorum longus tendon lengthening, flexor hallux longus tendon lengthening, left plantar fasciitis release, left resection plantar calcaneal bone exotosis performed 01/29/[address] Bentley * PT/OT, pain management, VTE prophylaxis as per ortho management * -- patient planning on [facility] at discharge. Insurance auth pending -- CM following (2) Diarrhea: * IMPROVED with stopping colace and senna-- suspect pt's inclination that it mostly relates to bowel meds is correct. discussed since it's a bit of an incontinence issue right now - that does suggest that she's probably got a reasonable amount of stool there (as does concomitant urinary incontinence w cough, although postmenopausal women frequently have stress incontinence with a cough at baseline) - so discussed that really at this point we could increase bowel regimen to clear out stool, but since she's not uncomfortable with her baseline amount of stool/wasnt' feeling constipated, etc, that probably most reasonable to stop the medications * Reported only 1 BM today (02/01) (3) Cough: * upper airway congestion. increase flonase to bid, afrin x1 --> patient reported no improvement * Continued use of IS while awake * Crackles on exam RML/RLL --> suspect some atelecatasis- pt 94% on RA. Afebrile. * CBC with WBC 5.2, afebrile, pt 94% on RA * Cxr - shows atelectasis (4) History of stroke: * Continue ASA, prior intolerance (questionable myositis) to statin with pt declining further retrials. 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 (7) Hematuria, microscopic: * 5-10 RBCs, normal in October. Patient reports prior cystoscopy normal. (8) Chronic sinusitis: * Continue cetirizine 10 mg p.o. every morning * Flonase 2 sprays intranasal daily increased to BID on 01/31 * Given afrin x 1 on 01/31 -- will order additional dose x 1 (9) Hypothyroidism: * TSH WNL on pre-op labs * Continue levothyroxine 75 mcg p.o. every morning (10) Persistent insomnia: * Continue clonazepam 0.5 mg p.o. at bedtime, noted prior attempts of weaning have failed. (11) Fibromyalgia: * Consider switching fluoxetine to venlafaxine as outpatient. * Continue amitriptyline 25 mg p.o. at bedtime (12) Dyslipidemia, goal LDL below 100: * Hx Statin intolerance. Consider PCSK 9 inhibitor if insurance covers this as outpatient. * LDL 150 on preop labs (13) Depressive disorder: * Continue fluoxetine 20 mg p.o. every morning (14) Hepatitis C antibody positive in blood: Hep C ab screen here is positive -await confirmatory testing as could be false positive (15) DVT prophylaxis: * TEDS/SCDs * ASA 81mg BID per primary service Thank you for allowing hospitalist service to participate in the care of Ms. Langford. Hospitalist service will sign off again at this time. Please feel free to reconsult for new or acute issues Admission and Anticipated Discharge Date Admission Date: January 30, 2020 Supervising Physician Co-Signing Physician Notes MELL Supervision Note: I did not personally see or examine the patient today, but I verified all parker points of MELL Díaz's assessment and plan with the following exceptions/additions: None Subjective Patient evaluated this morning. Last bowel movement this morning around 4am but states much less frequent now that stool softeners discontinued. Denies shortness of breath but does endorse some airway congestion. States she has been using the incentive spirometer but notes that she does not note any improvement with the afrin and flonase, although audible wheezing no longer heard. She does not know if wheezing/congestion worse with activity as she has not been very ambulatory since being in the hospital. States she lives on 2 stories alone and is hopeful for rehab at discharge until safe to return home. Denies fevers, chills, chest pain, shortness of breath, sputum production, abdominal pain, nausea at this time. Review of Systems Review of Systems: All systems reviewed & are unremarkable except as noted in HPI & below Physical Exam Constitutional: WD/WN, vitals as above cooperative and comfortable; no acute distress Eyes: + anicteric sclerae and PERRL ENMT: mmm Neck: normal visual inspection and trachea midline Respiratory: normal respiratory effort and able to speak in complete sentences; no respiratory distress and no labored breathing Auscultation: + crackles (RML/RLL); no rhonchi and no wheezes Cardiovascular: Rate/Rhythm: regular rate and regular rhythm Gastrointestinal (Abdomen): Percussion/Palpation: abdomen soft; abdomen nontender, no guarding and abdomen not rigid Musculoskeletal: Head/Neck/Chest: normocephalic and head atraumatic Left foot with heavy wrap/casting; left arm prosthetic. Skin: no rashes, warm and dry Neurologic: Left sided hemiplegia - chronic Psychiatric: Orientation: alert and oriented x 3 Affect: + flat affect Lymphatic: no cervical or axillary lymphadenopathy Results & Data Results & Data ([facility]) Vital Signs (Past 12 Hours) Vital Signs Temp Pulse Resp BP Pulse Ox 02/02/20 07:30 37.1 C 95 H 18 131/80 94 02/01/20 23:10 37.1 C 92 H 14 130/72 93 Laboratory Results 02/02/20 02/02/20 02/01/20 Range/Units 10:18 10:18 16:45 WBC 5.21 (4.8-10.8) K/uL RBC 4.24 (4.2-5.4) M/uL Hgb 12.8 (12.0-16.0) g/dL Hct 39.2 (37-47) % MCV 92.5 (80-100) fL MCH 30.2 (25-34) pg MCHC 32.7 (32-36) g/dL RDW Std Deviation 50.8 H (36.4-46.3) fL RDW Coeff of Lalo 14.9 H (11.5-14.5) % Plt Count 198 (130-400) K/uL MPV 9.1 (7.4-10.4) fL Sodium 134 L (136-145) mmol/L Potassium 3.6 (3.5-5.1) mmol/L Chloride 103 (98-107) mmol/L Carbon Dioxide 25 (21-32) mmol/L Anion Gap 6.0 (3-11) BUN 9 (7-18) mg/dl Creatinine 0.56 L (0.6-1.2) mg/dl Est Cr Clr Drug Dosing 115.2 ml/min Est GFR ( Amer) 110.3 Est GFR (Non-Af Amer) 95.1 BUN/Creatinine Ratio 16.0 (10-20) Glucose 103 H (70-99) mg/dl Calcium 8.3 L (8.5-10.1) mg/dl Stl C. diff Tox B Gene Negative Cdiff Gene (Neg) Diagnostic Findings 02/02/20 02/02/20 02/01/20 Range/Units 10:18 10:18 16:45 WBC 5.21 (4.8-10.8) K/uL RBC 4.24 (4.2-5.4) M/uL Hgb 12.8 (12.0-16.0) g/dL Hct 39.2 (37-47) % MCV 92.5 (80-100) fL MCH 30.2 (25-34) pg MCHC 32.7 (32-36) g/dL RDW Std Deviation 50.8 H (36.4-46.3) fL RDW Coeff of Lalo 14.9 H (11.5-14.5) % Plt Count 198 (130-400) K/uL MPV 9.1 (7.4-10.4) fL Sodium 134 L (136-145) mmol/L Potassium 3.6 (3.5-5.1) mmol/L Chloride 103 (98-107) mmol/L Carbon Dioxide 25 (21-32) mmol/L Anion Gap 6.0 (3-11) BUN 9 (7-18) mg/dl Creatinine 0.56 L (0.6-1.2) mg/dl Est Cr Clr Drug Dosing 115.2 ml/min Est GFR ( Amer) 110.3 Est GFR (Non-Af Amer) 95.1 BUN/Creatinine Ratio 16.0 (10-20) Glucose 103 H (70-99) mg/dl Calcium 8.3 L (8.5-10.1) mg/dl Stl C. 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
[2020-02-02 10:33] LABS: Hematocrit (blood only) 39.2 % (37-47); Hemoglobin 12.8 g/dL (12.0-16.0); Mean Corpuscular Hemoglobin 30.2 pg (25-34); Mean Corpuscular Hgb Conc 32.7 g/dL (32-36); Mean Corpuscular Volume 92.5 fL (80-100); Mean Platelet Volume 9.1 fL (7.4-10.4); Platelet Count 198 K/uL (130-400); RDW Coefficient of Variation 14.9 % (11.5-14.5); RDW Standard Deviation 50.8 fL (36.4-46.3); Red Blood Count 4.24 M/uL (4.2-5.4); White Blood Count 5.21 K/uL (4.8-10.8)
[2020-02-02 10:51] LABS: Calcium 8.3 mg/dl (8.5-10.1); Creatinine Clr Calc Pharmacy 115.2 ml/min; Est GFR (African American) 110.3; Est GFR (Non-African American) 95.1; Potassium 3.6 mmol/L (3.5-5.1)
--- NOTE | 2020-02-02 13:35 | XRay Report ---
XR chest 2V PA/lateral CLINICAL HISTORY: chest congestion, RLL/RML crackles on exam COMPARISON STUDY: No previous studies for comparison. FINDINGS: There are low lung volumes. There are bibasilar opacity statistically representing subsegme ntal atelectatic changes. There is no overt failure. There are no significant pleural effusions.[ IMPRESSION: Hypoventilatory study. Low lung volumes with basilar parenchymal opacities statistically atelectatic. ACT 112: Negative or not required by law. Electronically signed by: Vin Garcia M.D. 02/02/2020 1:34 PM
[2020-02-02] MEDS ORDERED: OXYMETAZOLINE 0.05% 30 ML BTL NAE ONE (14:15)
--- NOTE | 2020-02-02 19:50 | Orthopedic Progress Note ---
Date of Service February 02, 2020 Assessment & Plan (1) Contracture of joint: POD # 10 S/P Left Foot Flexor Digitorum Longus Tendon, Flexor Hallux Longus Tendon, Left Plantar Fasciitis Release, Left Resection Calcaneal Bone Spur DVT prophylaxis: KATHY/SCD/ASA 81 BID NWB left LE A.M. labs as above DC planning - rehab Admission and Anticipated Discharge Date Admission Date: January 30, 2020 Subjective Post Operative Progress Note Patient seen sitting up in bed, comfortable, denies complaints, pain well controlled, no acute issues. Denies F/C/N/V/SOB/CP. Review of Systems Review of Systems: All systems reviewed & are unremarkable except as noted in HPI & below Constitutional: as per Subjective / HPI Physical Exam Physical Exam: LLE NVSI +EHL/FHL SILT grossly, +2 DP pulse, compartments soft NT, dressing cdi. Splint in place. Constitutional: WD/WN, vitals as above Results & Data ([facility]) Vital Signs (Past 12 Hours) Vital Signs Temp Pulse Resp BP Pulse Ox 02/02/20 16:00 36.7 C 90 18 103/67 94 Laboratory Results 02/02/20 02/02/20 Range/Units 10:18 10:18 WBC 5.21 (4.8-10.8) K/uL RBC 4.24 (4.2-5.4) M/uL Hgb 12.8 (12.0-16.0) g/dL Hct 39.2 (37-47) % MCV 92.5 (80-100) fL MCH 30.2 (25-34) pg MCHC 32.7 (32-36) g/dL RDW Std Deviation 50.8 H (36.4-46.3) fL RDW Coeff of Lalo 14.9 H (11.5-14.5) % Plt Count 198 (130-400) K/uL MPV 9.1 (7.4-10.4) fL Sodium 134 L (136-145) mmol/L Potassium 3.6 (3.5-5.1) mmol/L Chloride 103 (98-107) mmol/L Carbon Dioxide 25 (21-32) mmol/L Anion Gap 6.0 (3-11) BUN 9 (7-18) mg/dl Creatinine 0.56 L (0.6-1.2) mg/dl Est Cr Clr Drug Dosing 115.2 ml/min Est GFR ( Amer) 110.3 Est GFR (Non-Af Amer) 95.1 BUN/Creatinine Ratio 16.0 (10-20) Glucose 103 H (70-99) mg/dl Calcium 8.3 L (8.5-10.1) mg/dl
[2020-02-02] MEDS: clonazePAM 0.5 MG TAB PO SCH (21:17)
[2020-02-02] MEDS: CARISOPRODOL 350 MG TABLET PO SCH (21:17)
[2020-02-02] MEDS: AMITRIPTYLINE HCL 25 MG TAB PO SCH (21:18)
[2020-02-03] MEDS: ACETAMINOPHEN 500 MG TAB PO SCH ×4 (00:06→23:33)
[2020-02-03] MEDS: LEVOTHYROXINE SODIUM 75 MCG TABLET PO SCH (05:02)
[2020-02-03] MEDS: ASPIRIN 81 MG ECTAB PO SCH ×2 (08:22→20:39)
[2020-02-03] MEDS: FLUOXETINE HCL 20 MG CAP PO SCH (08:22)
[2020-02-03] MEDS: CALCIUM CARBONATE 1250MG TAB PO SCH (08:22)
[2020-02-03] MEDS: CETIRIZINE HCL 10 MG TABLET PO SCH (08:22)
[2020-02-03] MEDS: MULTIVITAMIN TAB PO SCH (08:22)
[2020-02-03] MEDS: CHOLECALCIFEROL 1,000 UNITS 25 MCG TAB PO SCH (08:22)
[2020-02-03] MEDS: FLUTICASONE PROPIONATE NA SPR 16 GM BTL SCH ×2 (08:23→20:39)
--- NOTE | 2020-02-03 09:01 | Orthopedic Progress Note ---
Date of Service February 03, 2020 Assessment & Plan (1) Contracture of joint: POD # 4 S/P Left Foot Flexor Digitorum Longus Tendon, Flexor Hallux Longus Tendon, Left Plantar Fasciitis Release, Left Resection Calcaneal Bone Spur DVT prophylaxis: KATHY/SCD/ASA 81 BID NWB left LE DC planning - rehab when authorization complete Admission and Anticipated Discharge Date Admission Date: January 30, 2020 Subjective Postop day 4 Patient sitting up in bed awake and alert. Eating breakfast. She is having shooting pains off and on in the operative foot but currently is comfortable. No other complaints. Denies shortness of breath, chest pain, lightheadedness. Asking if she is going to be transferred to rehab today. We discussed that we would have to wait for her authorization to be approved. Physical Exam Physical Exam: Dressings/splint are clean, dry, and intact. Capillary refill is less than 2 seconds. Toes are pink and warm. Toes are mobile. Results & Data ([facility]) Vital Signs (Past 12 Hours) Vital Signs Temp Pulse Resp BP Pulse Ox 02/03/20 07:27 36.5 C 78 16 112/72 94 02/02/20 23:39 36.6 C 83 18 118/79 94
[2020-02-03] MEDS: OXYCODONE HCL IR 5 MG TAB (IMMEDIATE RELEASE) PO PRN ×2 (10:59→19:10)
[2020-02-03] MEDS: clonazePAM 0.5 MG TAB PO SCH (20:39)
[2020-02-03] MEDS: CARISOPRODOL 350 MG TABLET PO SCH (20:39)
[2020-02-03] MEDS: AMITRIPTYLINE HCL 25 MG TAB PO SCH (20:39)
[2020-02-03] MEDS ORDERED: COUGH DROP (SUGAR FREE) LOZ 24 LOZ/1 BOX BUCCAL ONE (23:31)
[2020-02-04] MEDS: LEVOTHYROXINE SODIUM 75 MCG TABLET PO SCH (05:21)
[2020-02-04] MEDS: ASPIRIN 81 MG ECTAB PO SCH ×2 (08:51→20:19)
[2020-02-04] MEDS: CALCIUM CARBONATE 1250MG TAB PO SCH (08:51)
[2020-02-04] MEDS: FLUTICASONE PROPIONATE NA SPR 16 GM BTL SCH ×2 (08:52→20:19)
[2020-02-04] MEDS: CHOLECALCIFEROL 1,000 UNITS 25 MCG TAB PO SCH (08:52)
[2020-02-04] MEDS: OXYCODONE HCL IR 5 MG TAB (IMMEDIATE RELEASE) PO PRN ×2 (08:52→23:48)
[2020-02-04] MEDS: ACETAMINOPHEN 500 MG TAB PO SCH ×3 (08:52→23:48)
[2020-02-04] MEDS: CETIRIZINE HCL 10 MG TABLET PO SCH (08:52)
[2020-02-04] MEDS: MULTIVITAMIN TAB PO SCH (08:52)
[2020-02-04] MEDS: FLUOXETINE HCL 20 MG CAP PO SCH (08:52)
--- NOTE | 2020-02-04 10:08 | Orthopedic Progress Note ---
Date of Service February 04, 2020 Assessment & Plan (1) Contracture of joint: POD # 5 S/P Left Foot Flexor Digitorum Longus Tendon, Flexor Hallux Longus Tendon, Left Plantar Fasciitis Release, Left Resection Calcaneal Bone Spur DVT prophylaxis: KATHY/SCD/ASA 81 BID NWB left LE DC planning - Per SNF when authorization complete, poss today. Admission and Anticipated Discharge Date Admission Date: January 30, 2020 Subjective Postop day 5 Patient sitting up in bed awake and alert. Reports pain is much better. Eager to get to SNF, was denied [facility]. No other complaints. Denies shortness of breath, chest pain, lightheadedness. Asking if she is going to be transferred today. We discussed that we would have to wait for her authorization to be approved. Physical Exam Physical Exam: Left foot/ ankle dressings and splnt c/d/i. Toes mobile. Sensation in tact. A&Ox3. Results & Data ([facility]) Vital Signs (Past 12 Hours) Vital Signs Temp Pulse Resp BP Pulse Ox 02/04/20 07:31 36.6 C 76 16 107/68 96 02/03/20 23:34 36.5 C 83 20 108/70 94
[2020-02-04] MEDS: AMITRIPTYLINE HCL 25 MG TAB PO SCH (20:19)
[2020-02-04] MEDS: clonazePAM 0.5 MG TAB PO SCH (20:19)
[2020-02-04] MEDS: CARISOPRODOL 350 MG TABLET PO SCH (20:19)
[2020-02-05] MEDS: LEVOTHYROXINE SODIUM 75 MCG TABLET PO SCH (05:21)
[2020-02-05] MEDS: FLUTICASONE PROPIONATE NA SPR 16 GM BTL SCH ×2 (08:27→21:26)
[2020-02-05] MEDS: ACETAMINOPHEN 500 MG TAB PO SCH ×3 (08:28→23:40)
[2020-02-05] MEDS: OXYCODONE HCL IR 5 MG TAB (IMMEDIATE RELEASE) PO PRN (08:28)
[2020-02-05] MEDS: CHOLECALCIFEROL 1,000 UNITS 25 MCG TAB PO SCH (08:28)
[2020-02-05] MEDS: CALCIUM CARBONATE 1250MG TAB PO SCH (08:28)
[2020-02-05] MEDS: FLUOXETINE HCL 20 MG CAP PO SCH (08:28)
[2020-02-05] MEDS: ASPIRIN 81 MG ECTAB PO SCH ×2 (08:28→21:26)
[2020-02-05] MEDS: CETIRIZINE HCL 10 MG TABLET PO SCH (08:28)
[2020-02-05] MEDS: MULTIVITAMIN TAB PO SCH (08:28)
--- NOTE | 2020-02-05 13:28 | Orthopedic Progress Note ---
Date of Service February 05, 2020 Assessment & Plan (1) Contracture of joint: POD # 6 S/P Left Foot Flexor Digitorum Longus Tendon, Flexor Hallux Longus Tendon, Left Plantar Fasciitis Release, Left Resection Calcaneal Bone Spur DVT prophylaxis: KATHY/SCD/ASA 81 BID NWB left LE DC planning - Per CM to SNF. Waiting on current COVID-19 test for transferring to [facility] Admission and Anticipated Discharge Date Admission Date: January 30, 2020 Subjective Postop day 6 patient currently sitting up in bed watching TV. Awake and alert. No complaints. States that she has been getting up and out of bed. States that she notices that she is getting increased strength each day and doing a little bit more with her PT each day. Physical Exam Physical Exam: Dressings/splint are clean, dry, and intact. Toes are pink and warm. Toes are mobile. Sensation intact. Results & Data ([facility]) Vital Signs (Past 12 Hours) Vital Signs Temp Pulse Resp BP Pulse Ox 02/05/20 07:06 36.5 C 81 16 123/83 95
[2020-02-05] MEDS: CARISOPRODOL 350 MG TABLET PO SCH (21:26)
[2020-02-05] MEDS: AMITRIPTYLINE HCL 25 MG TAB PO SCH (21:26)
[2020-02-05] MEDS: clonazePAM 0.5 MG TAB PO SCH (21:26)
[2020-02-06] MEDS: LEVOTHYROXINE SODIUM 75 MCG TABLET PO SCH (05:57)
[2020-02-06 07:21] VITALS: BP 120/78; PULSE 80; TEMP 98.2; O2SAT 94
[2020-02-06] MEDS: FLUTICASONE PROPIONATE NA SPR 16 GM BTL SCH (09:09)
[2020-02-06] MEDS: ASPIRIN 81 MG ECTAB PO SCH (09:14)
[2020-02-06] MEDS: CALCIUM CARBONATE 1250MG TAB PO SCH (09:14)
[2020-02-06] MEDS: FLUOXETINE HCL 20 MG CAP PO SCH (09:14)
[2020-02-06] MEDS: ACETAMINOPHEN 500 MG TAB PO SCH (09:15)
[2020-02-06] MEDS: MULTIVITAMIN TAB PO SCH (09:15)
[2020-02-06] MEDS: CHOLECALCIFEROL 1,000 UNITS 25 MCG TAB PO SCH (09:15)
[2020-02-06] MEDS: CETIRIZINE HCL 10 MG TABLET PO SCH (09:15)
--- NOTE | 2020-02-06 12:14 | Orthopedic Progress Note ---
Date of Service February 06, 2020 Assessment & Plan (1) Contracture of joint: POD # 7 S/P Left Foot Flexor Digitorum Longus Tendon, Flexor Hallux Longus Tendon, Left Plantar Fasciitis Release, Left Resection Calcaneal Bone Spur DVT prophylaxis: KATHY/SCD/ASA 81 BID NWB left LE DC planning - Per CM to SNF. Covid test negative. transferring to [facility] Admission and Anticipated Discharge Date Admission Date: January 30, 2020 Subjective POD 7 No new complaints. Pain contolled today. Covid test is negative. CM in room arranging transportation for the patient. Physical Exam Physical Exam: Continues to remain wnl. No changes overall. Results & Data ([facility]) Vital Signs (Past 12 Hours) Vital Signs Temp Pulse Resp BP Pulse Ox 02/06/20 07:19 36.8 C 80 15 120/78 94
--- NOTE | 2020-02-19 17:33 | Discharge Summary ---
Date of Service February 19, 2020 Principal Diagnosis left ankle contractures Discharge Exam Constitutional well developed and well nourished; no acute distress ENMT external ear and nose normal, oropharynx normal Neck trachea midline, no thyromegaly Respiratory normal respiratory effort, lungs clear to auscultation Cardiovascular Rate/Rhythm: regular rate and regular rhythm Gastrointestinal (Abdomen) normal bowel sounds, soft, nontender, no hepatosplenomegaly Musculoskeletal Ankle: + deformity (left ankle with plantarflexion/inversion contracture); no skin erythema, no ecchymosis and no surgical incision Skin no rashes, warm and dry Psychiatric A+Ox3, euthymic affect Speech: normal rate/rhythm/volume of speech Lymphatic no cervical or axillary lymphadenopathy Discharge Data Allergies Allergy/AdvReac Type Severity Reaction Status Date / Time lidocaine Allergy Severe "heart Verified 01/30/20 07:50 stopped" requiring defibrillator during appendectomy Penicillins Allergy Severe HIVES, GUM Verified 01/30/20 07:50 SWELLING Sulfa (Sulfonamide Allergy Severe LIP Verified 01/30/20 07:50 Antibiotics) SWELLING AND HIVES ciprofloxacin [From Cipro] Allergy Intermediate DIFFUSE Verified 01/30/20 07:50 REDNESS/SWELLING codeine Allergy Mild Rash Verified 01/30/20 07:50 morphine Allergy Mild Rash Verified 01/30/20 07:50 baclofen AdvReac Intermediate "MADE ME Verified 01/30/20 07:50 FEEL CRAZY" Cipro TABS Allergy Intermediate DIFFUSE Uncoded 01/30/20 07:50 REDNESS/SWELLING Consultations 01/30/20 13:36 Consult Case Management - Discharge Planning Routine Consult Hospitalist Routine 02/01/20 14:41 Consult Hospitalist Routine Procedures Performed Operation Date: 01/30/20 08:25 Actual Procedures p Left Foot Flexor Digitorum Longus Tendon, Flexor Hallux Longus Tendon, Left Plantar Fasciitis Release, Left Resection Calcaneal Bone Spur(Left) - DO brittani Kelly Achilles Lengthening, Posterior Tibial Tendon Transfer,(Left) - DO brittani Kelly Debridement Plantar Ulcer, 5th Metatarsal Exostectomy, Arthrotomy Ankle Joint, Posterior capsule Release(Left) - Brian Deleon DO Ordered Studies 01/30/20 05:00 US - OR guided needle placemen Routine 01/30/20 08:25 FL fluoroscopy <1hr Routine FL foot LT 2V Routine Hospital Course (1) Contracture of joint: POD # 7 S/P Left Foot Flexor Digitorum Longus Tendon, Flexor Hallux Longus Tendon, Left Plantar Fasciitis Release, Left Resection Calcaneal Bone Spur DVT prophylaxis: KATHY/SCD/ASA 81 BID NWB left LE DC planning - Per CM to SNF. Covid test negative. transferring to [facility] Total Time Total Time Spent Total Time Spent (In Minutes): 120 Total Time Includes: Examination of the Patient, Discharge Planning, Medication Reconciliation and Communication With Other Providers Discharge Plan Discharge Items Patient Disposition: Transfer Alf Fac Reason For Visit: Contracture, Unspecified Joint, Spasticity, Non-Pr Discharge Diagnosis: 1. Left foot fixed equinus contracture. 2. Left ankle fixed equinus contracture. 3. Contracture of the Achilles tendon. 4. Contracture of the flexor hallucis longus tendon. 5. Contracture of the flexor digitorum longus tendon. 6. Contracture of the plantar fascia. 7. Post stroke syndrome, left lower extremity. 8. Exostosis at the base of the fifth metatarsal. 9. Ulceration of the plantar lateral foot. 10. Unspecified joint contracture. 11. Plantar calcaneal exostosis. Activity: Per Instructions section Activity Comment: NWB LLE w walker Weightbearing: Left non-weightbearing Non-emergency contact: Surgeon Call non-emergency contact if: your pain is not controlled, your pain is worsening and your temperature is above 101 Follow-up/Referrals: Davide Kumar MD [Primary Care Provider] - Diet: Regular Addtl Attending Provider Instructions: ACTIVITY RECOMMENDATIONS: Limitations: No weight bearing to affected limb at all times. SPECIAL CARE INSTRUCTIONS: * Some drainage onto the dressing is normal and is no cause for alarm. * Some swelling is natural especially after walking. * When resting, keep your foot elevated above the level of your heart. * Call [facility] if you notice: -Increased drainage -Fever over 101 degrees F -Severe constant pain BANDAGE: * Leave bandage/cast in place unless otherwise directed. * Keep bandage/cast dry at all times. FOLLOW UP VISIT WITH DR. DELEON If appointment is not already scheduled: [facility] after you get home today to schedule a follow-up appointment for 2 weeks from the day of surgery with Dr. Deleon at [phone]. Pending Studies at Discharge: No Stand-Alone Forms: My [facility] Skilled Items Patient informed of condition?: Yes DNR: No Discharge Level of Care: Skilled Communicable Disease: No Discharge Prognosis: Improving Lines: None Urinary Catheter: No Medications and DC Order Prescriptions: New oxycodone 5 mg Tablet 5 - 10 mg PO Q4H PRN (Reason: pain) Qty: 30 RF: 0 Continued fluticasone propionate 50 mcg/actuation spray,suspension 2 sprays intranasal DAILY Qty: 48 RF: 3 amitriptyline 25 mg tablet 25 mg PO HS Qty: 90 RF: 3 clonazepam 0.5 mg tablet 0.5 mg PO HS Qty: 30 RF: 1 carisoprodol 350 mg tablet 350 mg PO HS PRN (Reason: muscle pain) Qty: 30 RF: 0 cholecalciferol (vitamin D3) 25 mcg (1,000 unit) tablet 2,000 units PO QAM Qty: 30 RF: 0 melatonin 5 mg capsule 5 - 10 mg PO HS PRN (Reason: Sleep) RF: 0 (DME) Right wrist splint Qty: 1 RF: 0 Centrum Silver Women 8 mg iron-400 mcg-300 mcg tablet 1 tab PO DAILY RF: 0 cetirizine 10 mg tablet 10 mg PO QAM Qty: 90 RF: 0 calcium carbonate 600 mg calcium (1,500 mg) tablet 600 mg PO QAM RF: 0 aspirin 81 mg Tablet,Delayed Release (Dr/Ec) 81 mg PO BID RF: 0 levothyroxine 75 mcg tablet 75 mcg PO QAM RF: 0 fluoxetine 20 mg capsule 20 mg PO QAM RF: 0 Discontinued acetaminophen 325 mg tablet 650 mg PO Q6H PRN (Reason: pain) Qty: 360 RF: 0 tramadol 50 mg Tablet 50 mg PO BID PRN (Reason: Pain) RF: 0 Discharge Orders: Discharge Order (Routine); Ordered 02/04/20 Ordered By: Karson De La Paz Admission Data Admit Date/Time: 01/30/20 13:05 Attending Provider: Brian Deleon Admit Provider: Brian Deleon Primary Care Provider: Davide Kumar Other Providers: Kenzie Díaz ; David Núñez Robert R. ; Brooke Conley ; Ravindra Jim ; Bhanu Richards ; Lance Waite ; Ashlie Garcia ; Sandra Kasper ; Morena Araujo ; Kevin Redd ; Candy Whitfield ; Leonarda Coronado ; Obinna Squires ; Enio Mosher ; Jean Paul Juares ; Flores Leach ; Rosalino Schulz ; Stuart Cordova ; David Flores ; Lopez Gross ; Carl Ayala ; Loreto Cortes ; Bette Cortes ; Jhonny Grant ; Brii Rodarte ; Tre Smith ; Giancarlo Hansen ; Karie Romero ; Rafy Roca ; [facility] ; [facility] ; Kim Perez Other Interventions: Discharge Summary Assessment (RN) Last Done: 02/06/20 11:20
== END 2020-02-06 12:44 ==
LOC: ASU 07:13 → INTOOBSV 13:05 → 3E 13:05